=== PATIENT | female | born 1965 | race Caucasian/White ===

== ENCOUNTER 2017-11-04 17:16 | Emergency (ER) | payer BC, OTHER ==
[~2017-11-04] VITALS: Ht 170.2 cm; Wt 100.9 kg
[2017-11-04 17:36] VITALS: BP 137/89
[2017-11-04] MEDS ORDERED: ATEN25TA PO (18:24)
== END 2017-11-04 18:25 | disposition home or self-care (01) ==
LOC: ED 18:19
DX: F41.9 Anxiety disorder, unspecified (principal); F32.9 Major depressive disorder, single episode, unspecified; Z76.0 Encounter for issue of repeat prescription
CPT/HCPCS: 99283